=== PATIENT | female | born 1980 | race Caucasian/White ===

== ENCOUNTER 2019-08-26 10:43 | Emergency (ER) | payer OTHER ==
[~2019-08-26] VITALS: Ht 160 cm; Wt 79.4 kg
[~2019-08-26 10:43] MED LIST: IBUP-974 PO; PREN-385 PO
[2019-08-26 10:56] VITALS: BP 123/86
--- NOTE | 2019-08-26 10:56 | NUR ---
Patient ambulated to bed 12. RN evaluating patient at bedside.
--- NOTE | 2019-08-26 11:00 | NUR ---
C/O EYE PAIN/RASH THAT STARTED IN THE R EYE AND MOVED TO THE L EYE OVER THE LAST WEEK. PT STATES IT IS NOT PAINFUL BUT IF FEELS IRRITATED. REDNESS NOTED TO R EYE. DENIES USE OF NEW FACIAL PRODUCTS, DENIES VISION CHANGES. BED IN LOW POSITION, SIDE RAIL UP X1
--- NOTE | 2019-08-26 11:10 | NUR ---
DR. MORENO AT BEDSIDE EVALUATING PT.
--- NOTE | 2019-08-26 11:23 | NUR ---
Patient discharged with v/s stable. Written and verbal after care instructions given and explained. Patient alert, oriented and verbalized understanding of instructions. Ambulatory with steady gait. All questions addressed prior to discharge. ID band removed. Patient advised to follow up with PMD. Rx of HARMAN, HYDROCORTISONE given. Patient educated on indication of medication including possible reaction and side effects. Opportunity to ask questions provided and answered.
== END 2019-08-26 11:23 | disposition home or self-care (01) ==
LOC: MED 10:43
DX: L25.9 Unspecified contact dermatitis, unspecified cause (principal); Z79.899 Other long term (current) drug therapy
CPT/HCPCS: 99282

== ENCOUNTER 2020-01-16 19:00 | Emergency (ER) | payer OTHER ==
[~2020-01-16] VITALS: Ht 160 cm; Wt 80.3 kg
[2020-01-16 19:21] VITALS: BP 138/64
--- NOTE | 2020-01-16 19:27 | NUR ---
PT AMBULATED TO ER BED 3
--- NOTE | 2020-01-16 19:29 | NUR ---
39 Y/O FEMALE C/O X 30 MIN AGO PT WAS WASHING DISHES AND WAS CLEANING A CUP WHEN IT BROKE AND SUFFERED LACERATION TO RIGHT INDEX FINGER, NO ACTIVE BLEEDING, PAIN 11/12; DENIES N/V/D; SKIN IS PINK/WARM/DRY; AAOX4 WITH EVEN AND STEADY GAIT; HR EVEN AND REGULAR; PT DENIES ANY FEVER, CP, SOB, OR COUGH AT THIS TIME; VSS; PATIENT POSITIONED FOR COMFORT; HOB ELEVATED; BEDRAILS UP X2; BED DOWN AND LOCKED PMH: PT DENIES NKA
--- NOTE | 2020-01-16 19:34 | NUR ---
PA BEDSIDE EVALUATING PT
[2020-01-16] MEDS ORDERED: BACITRACIN OINT 500 UNITS/GM PKT TP ONE (19:35)
[2020-01-16] MEDS ORDERED: LIDOCAINE MPF 1% 10 MG/ML VIAL INJ ONE ×2 (19:35→19:45)
--- NOTE | 2020-01-16 19:49 | NUR ---
XRAY AT BEDSIDE
--- NOTE | 2020-01-16 19:55 | NUR ---
GAUTAM KISER AT BEDSIDE
[2020-01-16] MEDS ORDERED: IBUPROFEN 600 MG TAB PO ONE (20:20)
--- NOTE | 2020-01-16 20:20 | NUR ---
PT WOUND ON R 2ND FINGER COVERED WITH NON ADHERENT DRESSING AND WRAPPED WITH COFLEX TAPE AFTER BACITRACIN APPLIED
[2020-01-16 20:26] VITALS: BP 138/64
--- NOTE | 2020-01-16 20:26 | NUR ---
DPatient discharged with v/s stable. Written and verbal after care instructions given and explained. Patient alert, oriented and verbalized understanding of instructions. Ambulatory with steady gait. All questions addressed prior to discharge. ID band removed. Patient advised to follow up with PMD. Rx of BACITRACIN/IBUPROFEN given. Patient educated on indication of medication including possible reaction and side effects. Opportunity to ask questions provided and answered.
== END 2020-01-16 20:26 | disposition home or self-care (01) ==
LOC: MED 19:00
DX: S61.210A Laceration without foreign body of right index finger without damage to nail, initial encounter (principal); Z79.899 Other long term (current) drug therapy; W25.XXXA Contact with sharp glass, initial encounter; Y93.89 Activity, other specified; Y92.89 Other specified places as the place of occurrence of the external cause; Y99.8 Other external cause status
CPT/HCPCS: 12001; 73140; 90471; 90715; 99283; J2001; Q0092

== ENCOUNTER 2020-06-25 15:17 | Emergency (ER) | payer OTHER ==
[~2020-06-25] VITALS: Ht 162.6 cm; Wt 77.1 kg
[2020-06-25 15:24] VITALS: BP 127/82
--- NOTE | 2020-06-25 15:36 | NUR ---
PATIENT AMBULATED TO BED 12. HANDED ON URINE CUP.
--- NOTE | 2020-06-25 15:37 | NUR ---
39 Y/O FEMALE C/O LEFT LOWER BACK PAIN RADIATING TO LEFT BUTTOCKS X1 WEEK. DENIES TRAUMA/INJURY. COVID TESTED POSITIVE 2 MONTHS AGO. DENIES S/S OF COVID AT THIS TIME. PT STATES SHE FOUND A LUMP ON LOWER LEFT BACK X1 WEEK AGO. ON ASSESSMENT, TIGHTNESS/LUMP NOTES ON LEFT LOWER BACK. PT RATES PAIN 5/10 THAT IS ACHY. PT STATES THE PAIN IS WORSE IN THE MORNINGS AND WHEN SHE GETS UP. PT DESCRIBES IT STABBING. 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 PT TOOK IBUPROFEN WITH NO RELIEF. PT IS A&O X4 WITH EVEN AND UNLABORED RESPIRATIONS. PT LAYING IN BED, BED IN LOWEST POSITION, BRAKES LOCKED, X1 SIDERAIL UP. PMH: DENIES SALIMA
--- NOTE | 2020-06-25 16:24 | NUR ---
DR MC AT PT BEDSIDE FOR EVALUATION
[2020-06-25] MEDS ORDERED: ACETAMINOPHEN EXTRA STRENGTH 500 MG TAB PO ONE (16:30)
[2020-06-25] MEDS ORDERED: KETOROLAC 30 MG/ML VIAL IM ONE (16:30)
[2020-06-25 17:23] VITALS: BP 127/82
--- NOTE | 2020-06-25 17:24 | NUR ---
Patient discharged with v/s stable. Written and verbal after care instructions given and explained. Patient verbalized understanding. Ambulatory with steady gait. All questions addressed prior to discharge. Advised to follow up with PMD.
== END 2020-06-25 17:24 | disposition home or self-care (01) ==
LOC: MED 15:17
DX: D17.1 Benign lipomatous neoplasm of skin and subcutaneous tissue of trunk (principal); Z79.899 Other long term (current) drug therapy
CPT/HCPCS: 96372; 99283; J1885